=== PATIENT | female | born 1965 | race African-American/Black ===

== ENCOUNTER 2022-11-05 10:40 | Emergency (ER) | payer OTHER ==
[2022-11-05] MEDS ORDERED: HYDROcodone/Acetaminophen 5/325 mg Tablet ONE (11:41)
== END 2022-11-05 12:02 | disposition home or self-care (01) ==
LOC: CSHERS 10:40
DX: K08.89 Other specified disorders of teeth and supporting structures (principal); E11.9 Type 2 diabetes mellitus without complications; I10 Essential (primary) hypertension; F17.210 Nicotine dependence, cigarettes, uncomplicated
CPT/HCPCS: 99282